=== PATIENT | female | born 2000 | race Caucasian/White ===

== ENCOUNTER 2018-05-04 00:38 | Emergency (ER) | payer OTHER ==
[~2018-05-04] VITALS: Ht 154.9 cm; Wt 64.4 kg
[2018-05-04 01:06] LABS: MCH 29.7 PG (29.0-34.0); MCHC 34.1 G/DL (30.0-36.0); MCV 87.1 FL (83-99); PLATELET COUNT 319 K/uL (156-360); RBC DIS.WIDTH-CV 12.3 % (11.8-14.6); RBC DIS.WIDTH-SD 38.8 % (39-53); RED BLOOD COUNT 5.05 M/uL (3.80-5.20); WHITE BLOOD COUNT 16.1 K/uL (4.1-10.2)
[2018-05-04 01:18] LABS: CHLORIDE 107 mEq/L (99-109); POTASSIUM 3.8 mEq/L (3.7-5.4); SODIUM 141 mEq/L (136-147)
[2018-05-04 01:19] LABS: GLUCOSE 97 mg/dL (70-99)
[2018-05-04 01:23] LABS: CREATININE 0.9 mg/dL (0.6-1.3); GFR ESTIMATE (CALCULATED) > 59 mL/min/
[2018-05-04 01:24] LABS: UREA NITROGEN (BUN) 12 mg/dL (9-23)
[2018-05-04 01:29] LABS: TROP-I INTERPRETATION NEGATIVE; TROPONIN-I < 0.01 ng/mL (0.0-0.30)
[2018-05-04 03:30] VITALS: BP 108/64
[2018-05-04 08:35] LABS: THYROTROPIN (TSH) 2.7 MIU/L (0.4-5.5)
== END 2018-05-04 03:33 | disposition home or self-care (01) ==
LOC: EME 00:38
DX: R00.2 Palpitations (principal); F17.200 Nicotine dependence, unspecified, uncomplicated
CPT/HCPCS: 71046; 80048; 84443; 84484; 85027; 93005; 99281; 99284

== ENCOUNTER 2018-06-24 01:17 | Emergency (ER) | payer OTHER ==
[~2018-06-24] VITALS: Ht 157.5 cm; Wt 54.7 kg
[2018-06-24 02:09] LABS: BASOPHIL (%) 0.7 % (0-1); BASOPHIL COUNT 0.1 K/uL (0-0.1); EOSINOPHIL (%) 4.5 % (0-5); EOSINOPHIL COUNT 0.6 K/uL (0-0.3); HEMATOCRIT 43.7 % (36.0-46.0); HEMOGLOBIN 14.6 G/DL (11.9-15.5); IMMATURE GRANULOCYTE (%) 0.5 % (0.0-0.7); LYMPHOCYTE (%) 39.7 % (15-42); MCHC 33.4 G/DL (30.0-36.0); MCV 86.7 FL (83-99); MONOCYTE (%) 6.1 % (3-12); MONOCYTE COUNT 0.8 K/uL (0-0.8); NEUTROPHIL (%) 48.5 % (45-76); NEUTROPHIL COUNT 6.1 K/uL (1.8-6.4); PLATELET COUNT 359 K/uL (156-360); RBC DIS.WIDTH-CV 12.2 % (11.8-14.6); RED BLOOD COUNT 5.04 M/uL (3.80-5.20); WHITE BLOOD COUNT 12.6 K/uL (4.1-10.2)
[2018-06-24 02:21] LABS: CHLORIDE 105 mEq/L (99-109); POTASSIUM 3.6 mEq/L (3.7-5.4); SODIUM 140 mEq/L (136-147)
[2018-06-24 02:22] LABS: GLUCOSE 113 mg/dL (70-99)
[2018-06-24 02:26] LABS: CREATININE 0.8 mg/dL (0.6-1.3); GFR ESTIMATE (CALCULATED) > 59 mL/min/
[2018-06-24 02:27] LABS: UREA NITROGEN (BUN) 11 mg/dL (9-23)
[2018-06-24 02:35] LABS: TROP-I INTERPRETATION NEGATIVE; TROPONIN-I < 0.01 ng/mL (0.0-0.30)
[2018-06-24 02:56] LABS: D-DIMER ELISA < 150.00 ng/mLDDU (<230)
[2018-06-24 04:37] VITALS: BP 101/69
== END 2018-06-24 04:56 | disposition home or self-care (01) ==
LOC: EME 01:17
PROVIDERS: Emergency Medicine
DX: R00.2 Palpitations (principal); R07.9 Chest pain, unspecified; Z72.0 Tobacco use
CPT/HCPCS: 71046; 80048; 84484; 85025; 85379; 93005; 99281; 99284